=== PATIENT | female | born 1960 ===

== ENCOUNTER 2017-03-02 13:36 | Emergency (ER) | payer OTHER ==
--- NOTE | 2017-03-02 14:38 | UC ---
Complaint Female HPI - HPI Summary HPI Summary: 57 year old female with h/o UTI, usually one yearly, no antibiotics resistence with c/o pressure, painful urination x 24 hours, took OTC medication, mild relief. no flank pain, no fever, chills. overall feeling well otherwise. denies hematuria - History Of Current Complaint Stated Complaint: URINARY COMPLAINT Time Seen by Provider: 03/02/17 14:37 Hx Obtained From: Patient ?: No - menopause Onset/Duration: Sudden Onset, Lasting Days - 24 hours Timing: Constant Severity Initially: Moderate Severity Currently: Moderate PMH/Surg Hx/FS Hx/Imm Hx Previously Healthy: Yes Review of Systems Genitourinary: Dysuria, Frequency, Urgency Is Patient Immunocompromised?: No All Other Systems Reviewed And Are Negative: Yes Physical Exam Triage Information Reviewed: Yes Appearance: Well-Appearing, No Pain Distress, Well-Nourished Vital Signs Reviewed: Yes Eyes: Positive: Conjunctiva Clear Respiratory: Positive: Chest non-tender, Lungs clear, Normal breath sounds Cardiovascular: Positive: RRR, No Murmur, Pulses Normal Abdomen Description: Positive: No Organomegaly, Soft, Bruit, Other: - tenderness mild with deeo palpation suprapubic region. Negative: CVA Tenderness (R), CVA Tenderness (L) Musculoskeletal Exam: Normal Complaint Female Dx - Course Course Of Treatment: UA +, UTI, ABX given, + ketones- patient to follow up with PCP. return for fever, back pain - Differential Dx/Diagnosis Provider Diagnoses: UTI Discharge - Discharge Plan Condition: Stable Disposition: HOME Prescriptions: Sulfamethox/Trimethoprim DS* [Bactrim DS 800/160 TAB*] 1 tab PO BID #10 tab Patient Education Materials: Urinary Tract Infection in Women (ED) Additional Instructions: - Increase fluid intake - Tylenol/motrin as needed for painful urination - Go to ER with back pain, fever, chills - FOllow up with primary after 1 week for follow up of ketones in urine
== END 2017-03-02 15:06 | disposition home or self-care (01) ==
LOC: UCCORT 13:36
DX: N39.0 Urinary tract infection, site not specified (principal)
CPT/HCPCS: 81003; 87077; 87086; 87186; 99201; G0463